=== PATIENT | female | born 1980 | race African-American/Black ===

== ENCOUNTER 2024-06-27 22:03 | Emergency (ER) | payer SELFPAY ==
[2024-06-27 22:04] VITALS: BP 145/79
[2024-06-27 22:36] VITALS: BMI 38.0
--- NOTE | 2024-06-27 23:25 | ED.GENMED ---
History of Present Illness
<Onofre Vaughn DO - Last Filed: 06/28/24 02:30>
General
Chief Complaint: Breathing Problem
Source: patient and ambulance crew
Time Seen by Provider: 06/27/24 22:14
Nursing documentation reviewed up to this point in time: agreed with
History of Present Illness
History of Present Illness:
This is a 44-year-old female who presents to the emergency department after being found outside of a fast food restaurant sleeping on the pavement. Patient states that she has been having difficulty breathing for the last 3 days. She has known
asthma and is a smoker but states that she does not have a rescue inhaler. Patient admits to taking NyQuil tonight because she is 'fed up 'and 'exhausted '. She states that she took the NyQuil and attempt to harm herself. History is limited as
patient is unwilling to answer questions in detail. She does not appear to be in any distress.
Review of Systems
<Onofre Vaughn DO - Last Filed: 06/28/24 02:30>
Review of Systems
Allergies reviewed?: Yes
All Other Systems: Not applicable
Respiratory: Reports trouble breathing
Cardiac: Denies chest pain
Psychiatric: Reports depression, anxiety and suicidal
Phy Exam
<DO Dean Peralta Last Filed: 06/28/24 02:30>
General Physical Exam
General Presentation: well appearing and no apparent distress
General Skin: warm and dry
General Habitus: normal
General Mental: alert
General Hydration: appears well hydrated
ENT Exam
ENT Exam: EOMI, pharynx normal, neck supple and normocephalic
Eye Exam
Eye Exam: PERRL, cornea clear and conjunctiva normal
Cardiovascular Exam
Cardiovascular Exam: regular rate/rhythm, no edema, no murmur and normal peripheral pulses
Pulmonary Exam
Pulmonary Exam: lungs clear, no respiratory distress, no rales, no crackles, no rhonchi, no stridor, no wheezing and no cough
Gastrointestinal Exam
Gastrointestinal Exam: normal bowel sounds, non tender, soft, no organomegaly, no pulsatile mass and non distended
Neurological Exam
Neurological Exam: alert, oriented x3, no motor deficits and speech normal
Musculoskeletal Exam
Musculoskeletal Exam: full ROM and no edema
Skin Exam
Skin Exam: normal color, warm/dry, no rash and no petechia
Psychiatric Exam
Psychiatric Exam: normal mood/affect
Scores
<DO Dean Peralta Last Filed: 06/28/24 02:30>
Heart Failure Risk
Heart Failure Risk Score: Not Applicable
Course
<DO Dean Peralta Filed: 06/28/24 02:30>
Orders/Labs/Results
Orders:
Orders
06/27/24 22:30
Crisis Consult Urgent
Reason for Consult: SI
06/27/24 23:27
Alcohol Urgent
Complete Blood Count/With Diff Urgent
Comprehensive Metabolic Panel Urgent
NT-proBNP Urgent
PTT Urgent
Prothrombin Time Urgent
Salicylate Urgent
Troponin I Urgent
Tylenol [Acetaminophen] Urgent
06/27/24 23:28
EKG- Treatment ONCE
Urine Drug Abuse Screen Urgent
CR Chest - 2 Views Urgent
Comment:
Reason For Exam: respiratory distress
06/27/24 23:30
Consult Notification Routine
Specialty to Notify: Psychiatry
Consult Psychiatry [PSYCHIATRY CONSULT] Urgent
Consulting Provider: Anastacio Rose
Was physician already notified: No
Reason for consult: SI
06/28/24
Electrocardiogram (*1) Stat
Reason for Study: Chest Pain
Abnormal Lab Results
06/28/24
00:12
RBC 3.73 L 10^6/uL
(4.20-5.40)
Hgb 10.2 L g/dL
(12.0-16.0)
Hct 32.9 L %
(37.0-47.0)
MCHC 31.0 L g/dL
(33.0-37.0)
RDW 16.2 H %
(11.5-14.5)
Abs Immat Gran (auto) 0.1 H 10^3/uL
(0-0.05)
Immature Gran % 1.0 H %
(0-0.5)
Salicylates < 1.0 L mg/dl
(2.0-20.0)
Acetaminophen < 10 L ug/ml
(10-30)
06/28/24 00:12
06/28/24 00:12
Vital Signs
Initial and Last Documented VS:
Initial Vital Signs
Temp Pulse Resp BP Pulse Ox
97.8 F 75 18 145/79 100
06/27/24 22:04 06/27/24 22:04 06/27/24 22:04 06/27/24 22:04 06/27/24 22:04
Last Documented Vital Signs
Temp Pulse Resp BP Pulse Ox
97.8 F 75 18 145/79 100
06/27/24 22:04 06/27/24 22:04 06/27/24 22:04 06/27/24 22:04 06/27/24 22:04
Helenlt;Mio Basurto, DO - Last Filed: 06/28/24 11:15>
Orders/Labs/Results
Orders:
Orders
06/27/24 22:30
Crisis Consult Urgent
Reason for Consult: SI
06/27/24 23:27
Alcohol Urgent
Complete Blood Count/With Diff Urgent
Comprehensive Metabolic Panel Urgent
NT-proBNP Urgent
PTT Urgent
Prothrombin Time Urgent
Salicylate Urgent
Troponin I Urgent
Tylenol [Acetaminophen] Urgent
06/27/24 23:28
EKG- Treatment ONCE
Urine Drug Abuse Screen Urgent
CR Chest - 2 Views Urgent
Comment:
Reason For Exam: respiratory distress
06/27/24 23:30
Consult Notification Routine
Specialty to Notify: Psychiatry
Consult Psychiatry [PSYCHIATRY CONSULT] Urgent
Consulting Provider: Anastacio Rose
Was physician already notified: No
Reason for consult: SI
06/28/24
Electrocardiogram (*1) Stat
Reason for Study: Chest Pain
Abnormal Lab Results
06/28/24
00:12
RBC 3.73 L 10^6/uL
(4.20-5.40)
Hgb 10.2 L g/dL
(12.0-16.0)
Hct 32.9 L %
(37.0-47.0)
MCHC 31.0 L g/dL
(33.0-37.0)
RDW 16.2 H %
(11.5-14.5)
Abs Immat Gran (auto) 0.1 H 10^3/uL
(0-0.05)
Immature Gran % 1.0 H %
(0-0.5)
Salicylates < 1.0 L mg/dl
(2.0-20.0)
Acetaminophen < 10 L ug/ml
(10-30)
06/28/24 00:12
06/28/24 00:12
Vital Signs
Initial and Last Documented VS:
Initial Vital Signs
Temp Pulse Resp BP Pulse Ox
97.8 F 75 18 145/79 100
06/27/24 22:04 06/27/24 22:04 06/27/24 22:04 06/27/24 22:04 06/27/24 22:04
Last Documented Vital Signs
Temp Pulse Resp BP Pulse Ox
97.8 F 75 18 145/79 100
06/27/24 22:04 06/27/24 22:04 06/27/24 22:04 06/27/24 22:04 06/27/24 22:04
<Onofre Vaughn, DO - Last Filed: 06/28/24 02:30>
*Critical Care Note
Total Time (30-74mins, 75-104mins- exclusive of procedures): Not Applicable
<Mio Basurto, DO - Last Filed: 06/28/24 11:15>
Update Note
Update Note:
Patient seen by psychiatry. She is not suicidal. She was stable for discharge. She ambulated out the door to the bus stop.
ED Attending Note
<Onofre Vaughn, DO - Last Filed: 06/28/24 02:30>
-
Portions of this chart may have been created with voice recognition software.� Occasional wrong word or��sound alike� substitutions may have occurred due to the inherent limitations of voice recognition software.
Discharge Plan
Departure
Patient Disposition: Home (Routine Discharge)
Date of Disposition: 06/27/24
Time of Disposition: 23:31
Patient with high blood pressure during this ER visit?: Yes
Condition: Good
Discharge Problem:
Respiratory distress
Referrals:
NONE,* [Family Provider] -
Activity Restrictions/Additional Instructions:
Follow-up with your primary care. Return for any concerns.
Interventions
Interventions:
*Risk Screen - Suicide Last Done: 06/27/24 22:04
*General Assessment Last Done: 06/27/24 22:04
*Neglect/Abuse Screening Last Done: 06/27/24 22:04
ED- Fall Risk Assessment Last Done: 06/27/24 22:36
*ED COVID-19 Vaccine History Last Done: 06/27/24 22:04
ED- Cardiac Assessment Last Done: 06/27/24 22:36
ED- Pulmonary Assessment Last Done: 06/27/24 22:36
Discharge Date and Time
Print Language: FAROESE
[2024-06-28 00:31] LABS: INR 0.94; PT 12.9 Sec (11.4-14.6)
[2024-06-28 00:32] LABS: APTT 34.7 Sec (23.4-35.0)
[2024-06-28 00:41] LABS: Hematocrit 32.9 % (37.0-47.0); Hemoglobin 10.2 g/dL (12.0-16.0); Mean Corpuscular Hgb 27.3 pg (27.0-31.0); Mean Corpuscular Volume 88.2 fL (81.0-99.0); Mean Platelet Volume 9.6 fL (7.4-10.4); Platelet Count 344 10^3/uL (130-400); Red Blood Cell Count 3.73 10^6/uL (4.20-5.40); Red Cell Dist. Width 16.2 % (11.5-14.5); White Blood Cell Count 7.3 10^3/uL (4.8-10.8)
[2024-06-28 00:55] LABS: ALT (SGPT) 16 U/L (0-35); AST (SGOT) 18 U/L (14-36); Acetaminophen < 10 ug/ml (10-30); Albumin 4.6 g/dl (3.5-5.0); Alkaline Phosphatase 68 U/L (38-126); Blood Urea Nitrogen 15 mg/dl (7-17); Calcium 9.8 mg/dl (8.4-10.2); Carbon Dioxide 27 mmol/L (22-30); Chloride 105 mmol/L (98-107); Estimated Creatinine Clearance > 125 ml/min; Glucose 97 mg/dl (70-99); Potassium 4.1 mmol/L (3.5-5.1); Salicylate < 1.0 mg/dl (2.0-20.0); Sodium 139 mmol/L (135-145); Total Bilirubin 0.4 mg/dl (0.2-1.3); Total Protein 7.6 g/dl (6.3-8.2); eGFR > 60.00
[2024-06-28 01:01] LABS: NT-proBNP 121 pg/ml; Troponin I < 0.012 ng/ml
[2024-06-28 01:13] LABS: % Basophils 0.3 % (0-2); % Eosinophils 2.2 % (0-6); % Lymphocytes 34.2 % (20.5-51.1); % Monocytes 5.9 % (1.7-9.3); % Neutrophils 56.4 % (42.2-75.2); Absolute Eosinophils 0.2 10^3/uL (0-0.7); Absolute Immature Granulocytes 0.1 10^3/uL (0-0.05); Absolute Lymphocytes 2.5 10^3/uL (1.2-3.4); Absolute Monocytes 0.4 10^3/uL (0.1-0.6); Absolute Neutrophils 4.1 10^3/uL (1.4-6.5); Nucleated Red Blood Cells % 0 %
[2024-06-28 01:30] LABS: Alcohol None Detected
--- NOTE | 2024-06-28 10:34 | CON.MD ---
Consultation - Medical
-
patient seen chart reviewed patient is a 44 year old female who comes to brought in by police . she had been lying down in front of a fast food restaurant. she has hx of asthma but did not appear to be currently in any distress. she is asking to
leave the hospital . she wishes to return to [facility] via the '[employer] bus' sometimes she stays w a cousin at other times she stays in a assisted. she denies that she was ever suicidal. said she took nyquil to sleep. she was exhausted. the patient
denies any psych history. she says she has never been hospitalized or treated psychiatrically although it is not clear to me that this is reliable. she cannot tell me why she is here in [facility]. she does tell me she has children who live with
their father. she has a good appetite and asked for another breakfast tray and food to take with her on the bus. she denied hearing voices she answered not to questions re ideas of references. she said she is not depressed although sometimes
feels overwhelmed.
past psych hx patient denies psych hx . i suspect there is psych hx but she is not in our system.
medical hx patient w mild anemia hgb of 10+ otherwise labs unremarkable ecg w nl qtc but inf mi age indeterminate. she is not suffering from chest pain and appeared in nad
fh denied
substance abuse denied
social patient resided for a time w cousin. she has also resided in shelters. she does not work. she does not have disability . her kids reside with their father
mse alert oriented to time and hospital speech nl rate and tone although she is not a great historian. her thought process seems goal oriented. there is paucity of expression affect constricted mood neutral she denies suicidality or sx which
might suggest psychosis aver intelligence insight judgment lacking
dx likely schizophrenia
plan patient wishes to leave. wants to take the bus to [facility] where she has a cousin and where she is acquainted with shelters there. she is not suicidal. she is not overtly psychotic. there is nothing to suggest harm to self or others. there are
no grounds to commit her. will ask staff to get her to bus station and get her a ticket to [place] and make sure she has clothes. she asks for a boxed lunch to go which i communicated to staff.
== END 2024-06-28 11:00 | disposition home or self-care (01) ==
LOC: EMR 22:03
PROVIDERS: CONSULT PHYSICIAN Psychiatry & Neurology Psychiatry; EMERGENCY PHYSICIAN Student in an Organized Health Care Education/Training Program
DX: R06.03 Acute respiratory distress (principal); R03.0 Elevated blood-pressure reading, without diagnosis of hypertension; J45.909 Unspecified asthma, uncomplicated; F17.200 Nicotine dependence, unspecified, uncomplicated
CPT/HCPCS: 99285; 71046; 80053; 80143; 80179; 82077; 83880; 84484; 85025; 85610; 85730; 93005

== ENCOUNTER 2024-06-29 05:42 | Emergency (ER) | payer SELFPAY ==
[2024-06-29 05:50] VITALS: BP 181/107
[2024-06-29 06:12] VITALS: BMI 37.8
--- NOTE | 2024-06-29 06:45 | ED.GENMED ---
History of Present Illness
General
Chief Complaint: Prescription Refill
Source: patient
Exam Limitations: none
Time Seen by Provider: 06/29/24 06:32
History of Present Illness
History of Present Illness:
Patient presents feeling like she needs her inhaler. Although currently states she feels better. Denies chest pain shortness of breath fever chills. Notes some mild cough. Patient is currently living with her cousin per the patient. She states
she got on the wrong bus to come up here. She denies current suicidal or homicidal ideation
Past History
Past History
ED Past Medical History: Asthma
Review of Systems
Review of Systems
All Other Systems: Not applicable
Constitutional: Denies fever or chills
Respiratory: Reports cough; Denies hemoptysis
Cardiac: Denies chest pain
Phy Exam
Physical Exam
Physical Exam:
GENERAL: Alert and oriented in no apparent distress
EYE: Orbits normal.
NECK: Supple
ENT: Pharynx without erythema
CARDIAC: Regular rate and rhythm without any obvious murmurs.
LUNGS: Clear breath sounds,normal
ABDOMEN: Soft, without focal tenderness or distention
NEUROLOGICAL: Alert and oriented , grossly non-focal
SKIN: Warm and dry, no rash or lesion, no discoloration, skin intact.
MUSCULOSKELETAL: No edema,no deformity.Good color
PSYCH: Cooperative. Answering questions appropriately. No distress.
Course
Orders/Labs/Results
Orders:
Orders
06/29/24 00:00
Albuterol [ProAIR HFA INHALER] 2 puff INH Q6HPRN
Doxycycline [Vibramycin] 100 mg PO BID
06/29/24 06:44
Case Management Consult ONCE
Case Management Consult: Discharge Planning
Doxycycline [Vibramycin] 100 mg PO NOW STA
Vital Signs
Initial and Last Documented VS:
Initial Vital Signs
Temp Pulse Resp BP Pulse Ox
98.6 F 105 18 181/107 100
06/29/24 05:50 06/29/24 05:50 06/29/24 05:50 06/29/24 05:50 06/29/24 05:50
Last Documented Vital Signs
Temp Pulse Resp BP Pulse Ox
98.6 F 86 16 142/69 98
06/29/24 05:50 06/29/24 07:10 06/29/24 07:10 06/29/24 07:10 06/29/24 07:10
MDM/Problems Addressed
Differential Diagnosis Includes:
Patient's initial complaint was shortness of breath that is resolved. Her lungs are essentially clear. She is in no distress. I have no problem giving her an inhaler which she may use as needed. However previous records were reviewed from a day
ago and there was a pneumonitis appearance on the x-ray. Clinically I do not suspect any serious bacterial pneumonia however we will cover with doxycycline. Will get case management's involvement
*Critical Care Note
Total Time (30-74mins, 75-104mins- exclusive of procedures): Not Applicable
Data Reviewed
Review of Other/Old Records Reveals: Labs, Records and Radiology Studies
ED Attending Note
-
Portions of this chart may have been created with voice recognition software.� Occasional wrong word or��sound alike� substitutions may have occurred due to the inherent limitations of voice recognition software.
Discharge Plan
Departure
Patient Disposition: Home (Routine Discharge)
Date of Disposition: 06/29/24
Time of Disposition: 06:51
Patient with high blood pressure during this ER visit?: Yes
Discharge Problem:
Transient dyspnea, Possible right lower lobe pneumonia
Instructions: Pneumonia in adults - Discharge instructions, Shortness of breath in adults - ED discharge instructions, BLOOD PRESSURE
Prescriptions:
New
albuterol sulfate 90 mcg/actuation HFA aerosol inhaler
2 inh inhalation Q6H PRN (Reason: shortness of breath or wheezing) Qty: 6.7 0RF
doxycycline hyclate 100 mg capsule
100 mg PO BID 10 Days Qty: 20 0RF
Referrals:
UNKNOWN - PT DOES,NOT KNOW [Family Provider] -
Activity Restrictions/Additional Instructions:
Follow-up with your primary physician. Return sooner with increased shortness of breath fever chest pain or any other concerning symptoms
Interventions
Interventions:
*Risk Screen - Suicide Last Done: 06/29/24 05:50
*General Assessment Last Done: 06/29/24 05:50
*Neglect/Abuse Screening Last Done: 06/29/24 06:12
*ED COVID-19 Vaccine History Last Done: 06/29/24 06:12
*Nursing Disposition Last Done: 06/29/24 12:18
Discharge Date and Time
Discharge Date/Time: 06/29/24 12:18
Print Language: LAO
[2024-06-29] MEDS: VIBRAMYCIN 100 MG PO (07:06)
[2024-06-29 07:10] VITALS: BP 142/69
--- NOTE | 2024-06-29 10:08 | CM ---
Met with patient in ED
Patient reports she is homeless, no health insurance; and independent with ambulation and ADLs
Administrative Personal Assistant obtained cost of inhaler and antibiotic prescriptions ordered from Pharmacy.
VIA Administrative Personal Assistant agreed to cover cost of medication; ED RN instructed to send scripts to pharmacy
Plan: Patient reported that she plans to take a cab to her cousin's house in [place], [place] when discharged from ED today
== END 2024-06-29 12:18 | disposition home or self-care (01) ==
LOC: EMR 05:42
PROVIDERS: EMERGENCY PHYSICIAN Emergency Medicine
DX: R06.00 Dyspnea, unspecified (principal); J45.909 Unspecified asthma, uncomplicated; Z76.0 Encounter for issue of repeat prescription
CPT/HCPCS: 99283